=== PATIENT | male | born 1935 | race Caucasian/White ===

== ENCOUNTER → 2024-04-07 05:00 | Outpatient (REF) | payer MEDICARE, OTHER, SELFPAY ==
[2024-04-07 08:22] LABS: Hematocrit 44.9 % (40-54); Hemoglobin 14.6 g/dL (13.0-16.5); Mean Corp Hgb Conc 32.5 g/dL (32-36); Mean Corpuscular Volume 92.2 fL (80-94); Mean Platelet Vol. 10.5 fl (6.2-12.0); Platelet Count 242 K/mm3 (150-450); RBC Distribution Width CV 13.4 % (11.6-14.6); RBC Distribution Width SD 46.1 fl (35.1-43.9); Red Blood Count 4.87 M/mm3 (4.6-6.2); White Blood Count 8.9 K/mm3 (4.4-11.0)
[2024-04-07 08:24] LABS: Hemoglobin A1c 6.3 % (3.8-5.6)
[2024-04-07 08:37] LABS: Vitamin D,25 Hydroxy 33.5 ng/mL
[2024-04-07 08:42] LABS: ALB/GLOB Ratio 0.9 RATIO (0.9-2.4); AST(SGOT) 21 U/L (15-37); Alanine Aminotransfer ALT/SGPT 21 U/L (16-61); Albumin, Serum 3.1 g/dL (3.2-5.0); Alkaline Phosphatase 111 U/L (45-117); Anion Gap 6 (5-15); BUN 20 mg/dL (7-18); BUN/Creat Ratio 24.9 RATIO (10-20); Calcium,Total 8.6 mg/dL (8.5-10.1); Chloride 110 mmol/L (98-107); Cholesterol 171 mg/dL (200); EST Glomerular Filtration Rate 97 mL/min (>60); Est Glom Filt Rate - Afr Amer 117 mL/min (>60); Globulin 3.4 g/dL (2.2-4.2); Glucose 115 mg/dL (74-106); High Density Lipoprotein 41 mg/dL; Protein, Total 6.5 g/dL (6.4-8.2); Sodium Level 141 mmol/L (136-145); T4 Total, Thyroxin 7.3 ug/dL (4.5-12.1); Thyroid Stim Hormone (TSH) 0.558 uIU/mL (0.358-3.740); Triglycerides 109 mg/dL; Very Low Density Lipoprotein 22 mg/dL (5-40)
== END ==
LOC: OLS.BROOKB 05:00
PROVIDERS: Visit Provider Family Medicine
DX: E78.2 Mixed hyperlipidemia (principal); G31.84 Mild cognitive impairment of uncertain or unknown etiology; F02.B0 Dementia in other diseases classified elsewhere, moderate, without behavioral disturbance, psychotic disturbance, mood disturbance, and anxiety
CPT/HCPCS: 36415; 80053; 80061; 82306; 83036; 84436; 84443; 85027

== ENCOUNTER 2025-05-23 18:38 | Inpatient (IN) | payer MEDICARE, OTHER, SELFPAY ==
[2025-05-23 18:39] VITALS: BP 131/70; PULSE 118; RESP 20; TEMP 37.4; O2SAT 92; BMI 29.2
--- NOTE | 2025-05-23 19:17 | RAD_ITS ---
PROCEDURE: HIP, UNI W/ PELVIS 2-3 VIEWS 05/23/2025 REASON FOR EXAM: FALL TECHNIQUE: Procedure Code: [facility] Modality: DX Procedure: HIP, UNI W/ PELVIS 2-3 VIEWS COMPARISON: Reviewed FINDINGS: Osseous structures intact. Moderate degenerative changes of the bilateral hips. Vascular calcifications. No dislocations. No erosive change. RAD/HIP, UNI W/ Pelvis 2-3 Views IMPRESSION: As above. [facility]
--- NOTE | 2025-05-23 19:17 | EKG12_ITS ---
Test Reason : Blood Pressure : */* mmHG Vent. Rate : 114 BPM Atrial Rate : 114 BPM P-R Int : 174 ms QRS Dur : 134 ms QT Int : 350 ms P-R-T Axes : 63 74 43 degrees QTcB Int : 482 ms Sinus tachycardia with Premature atrial complexes Right bundle branch block Cannot rule out Inferior infarct , age undetermined Abnormal ECG Confirmed by Oscar Lujan ([id number]), editor sound GRANT BEJARANO ([id number]) on 05/25/2025 8:35:06 AM Referred By: Confirmed By: Oscar Lujan
--- OUTSIDE RECORDS SUMMARY | 2025-05-23 19:23 | XMS RPT_ITS | CCD ---
Author Organization [facility] Informat ion Partnership [employer] [facility] Care Team Providers Care Director Of Safety And Security Name Role Phone Johnson Lang Attending Unavailable Problems Problem Classification Problem Date Documented Da te Episodic/Chronic Disorders of lipid metabolism (1 source) Mixed hyperlipidemia; Translations: [Mixed hyperlipidemia] Onset: 05-05-2024 Chronic Essential hypertension (1 source) Essential (primary) hypertension; Translations: [Essential (primary) hypertension] Onset: 05-05-2024 Chronic Encounters Encounter Date Encounter Type Care Provider Facility Start: 04-07-2024 ambulatory Johnson BENAVIDES Facil ity:[facility] Payers Date Payer Category Payer Medicare [id number] 2024 Self-pay 2024 Unknown [id number] Unknown [id number] Summary Purpose Family History No Family History Records Found Advance Directives No Advanced Directives Records Found Additional Source Comments (unrecognized sect ion and content) No Status Records Found INFORMATION SOURCE (unrecogn ized section and content) DATE CREATED AUTHOR 05/07/2024 [facility] FOR RECORDS PERTAINING TO PATIENTS WHO ARE OR HAVE BEEN ENROLLED IN A CHEMICAL DEPENDENCY/SUBSTANCEABUSE PROGRAM, SOME INFORMATION MAY BE OMITTED. This clinical summary was aggregated from multiple sources. Caution should be exercised in using it in the provision of clinical care. This summary normalizes information from multiple sources, and as a consequence, information in this document may materially change the coding, format and clinical context of patient data. In addition, data may be omitted in some cases. CLINICAL DECISIONS SHOULD BE BASED ON THE PRIMARY CLINICAL RECORDS. [employer] provides no warranty or guarantee of the accuracy or completeness of information in this document.
--- NOTE | 2025-05-23 19:28 | ED.VIS.FALL ---
HPI HPI - Fall History of Present Illness Chief Complaint: Fall Narrative Narrative: Chief complaint and HPI: 79-year-old male with past medical history of dementia in a memory care unit, HTN, HLD presents from care facility for evaluation of generalized weakness and cough. Patient is alert and oriented to self only. Reported patient's baseline. Patient is a poor historian. States he has no complaints at this time. I spoke with the political science faculty member over the phone at the care facility. They state for the past 4 days the patient has had a cough. They state that he was ambulating when he developed weakness and they helped lower him to the ground. He did not hit his head. No LOC. They state originally the patient complained of right hip pain. They deny any nausea, vomiting, diarrhea. Review of systems: See HPI Medications: As listed on the chart Allergies: As listed on the chart PFSH: Per chart Vital signs: As listed on the chart. Reviewed. Physical exam: Gen: A&O x1-patient's baseline, NAD Head: Normocephalic, atraumatic Eyes: No sclera icterus, conjunctiva clear, PERRL, EOMI ENT: TMs clear BL, mildly dry mucous membranes, posterior oropharynx unremarkable, uvula midline, tonsils not enlarged, no tonsillar exudates, no facial tenderness, patient has abrasions to the face that were reported to be old and not new Neck: Trachea midline, No JVD, Nontender, full range of motion CV: Tachycardic, regular rhythm, no murmurs, no chest wall TTP Resp: Lungs coarse bilaterally, no wheezing, + cough, intermittent tachypnea GI: Abd soft, non-distended, non-tender, no r/r/g Musc: Full ROM, no deformity, no spinal TTP, no silverio step-offs Skin: Warm, dry, intact Psych: Cooperative [facility] Medical History (Updated 05/23/25 @ 19:44 by Kelly King) Hypertension Hyperlipidemia Depression Anxiety Dementia Home Medications ?Medication ?Instructions ?Recorded ?Last Taken ?Type acetaminophen 500 mg tablet 500 mg PO Q6H PRN pain 05/23/25 Unknown History atorvastatin 10 mg tablet 10 mg PO DAILY 05/23/25 Unknown History citalopram 20 mg tablet 20 mg PO DAILY 05/23/25 Unknown History hydrocortisone 2.5 % lotion 1 applic topical DAILY PRN skin 05/23/25 Unknown History irritation ipratropium bromide 42 mcg (0.06 1 spray intranasal BID 05/23/25 Unknown History %) nasal spray lorazepam 0.5 mg tablet 0.5 mg PO Q12H PRN anxiety 05/23/25 Unknown History losartan 25 mg tablet 25 mg PO DAILY 05/23/25 Unknown History memantine 10 mg tablet 10 mg PO BID 05/23/25 Unknown History mirtazapine 30 mg tablet 30 mg PO QHS 05/23/25 Unknown History multivit with minerals-iron 18 1 tab PO DAILY 05/23/25 Unknown History mg-folic ac 400 mcg-vit K 25 mcg tablet (Adults Multivitamin) quetiapine 25 mg tablet 25 mg PO BID 05/23/25 Unknown History Allergy/AdvReac Type Severity Reaction Status Date / Time Unable to Assess Allergy Verified 05/23/25 18:40 Social History Smoking Status: Unknown if ever smoked EXAM Physical Exam Const Vital Signs: 05/23/25 18:39 05/23/25 19:42 05/23/25 20:51 Temperature 99.4 F H 98.8 F Temperature Source Oral Oral Pulse Rate 118 H 115 H Respiratory Rate 20 H 18 Respiratory Effort Normal Non-Labored Respiratory Depth Normal Respiratory Pattern Normal Blood Pressure 131/70 H 129/66 H Blood Pressure Mean 90 87 Pulse Ox 92 100 Oxygen Delivery Method Room Air Room Air Room Air 05/23/25 22:01 Temperature Temperature Source Pulse Rate 103 H Respiratory Rate 22 H Respiratory Effort Respiratory Depth Respiratory Pattern Blood Pressure 122/60 H Blood Pressure Mean 80 Pulse Ox 95 Oxygen Delivery Method Room Air MDM MDM MDM Narrative Medical decision making narrative: 79-year-old male with past medical history of dementia in a memory care unit, HTN, HLD presents from care facility for evaluation of generalized weakness and cough. Patient is alert and oriented to self only. Reported patient's baseline. Patient is a poor historian. States he has no complaints at this time. I spoke with the political science faculty member over the phone at the care facility. They state for the past 4 days the patient has had a cough. They state that he was ambulating when he developed weakness and they helped lower him to the ground. He did not hit his head. No LOC. They state originally the patient complained of right hip pain. Differential diagnosis includes but is not limited to viral illness, pneumonia, electrolyte abnormality, dehydration, arrhythmia, ACS, UTI, suspect less likely hip fracture, hip contusion. NS bolus and Tylenol ordered. Laboratory workup ordered including imaging. CBC without leukocytosis or anemia. Platelets unremarkable. CMP unremarkable. Lactic acid unremarkable. Magnesium mildly elevated at 2.4. Patient receiving fluids. Troponin unremarkable x 2. COVID, flu, RSV negative. UA positive for UTI. Urine culture sent. Rocephin ordered. X-ray of the hip and pelvis was reviewed interpreted by me, ED physician. No fracture or dislocation visualized. Radiology in agreement.On reevaluation, patient still has generalized weakness. He is still tachycardic and intermittently tachypneic. I suspect patient has 2 diagnoses, viral illness with UTI. I do think he would benefit from admission for IV antibiotics. Patient was discussed with the hospitalist who accepted admission. EKG: Interpreted by me/EM physician: EKG shows sinus tachycardia with PACs. Right bundle branch block. Heart rate 114. Nonspecific ST changes. I do not have a previous EKG to co Diagnostic: Interpreted by me/EM physician: Chest x-ray without consolidation, pneumothorax, effusion, cardiomegaly. Radiology in agreement. Per radiology bibasilar subsegmental atelectasis. Impression: 1. Viral syndrome 2. UTI 3. Generalized weakness Lab Data Labs: Laboratory Results - last 24 hr 05/23/25 05/23/25 05/23/25 19:35 21:30 21:55 WBC 10.1 RBC 4.84 Hgb 14.4 Hct 44.4 MCV 91.7 MCH 29.8 MCHC 32.4 RDW Std Deviation 46.0 H RDW Coeff of Jake 13.5 Plt Count 222 MPV 10.4 Immature Gran % (Auto) 0.400 Neut % (Auto) 70.4 H Lymph % (Auto) 16.2 L [place] % (Auto) 10.5 H Eos % (Auto) 1.9 Baso % (Auto) 0.6 Absolute Neuts (auto) 7.1 Absolute Lymphs (auto) 1.63 Nucleated RBC % 0 Sodium 136 Potassium 4.3 Chloride 101 Carbon Dioxide 23.7 Anion Gap 11 BUN 19 Creatinine 1.18 Estim Creat Clear Calc 45.57 L Est GFR (MDRD) Non-Af 59 L BUN/Creatinine Ratio 16.4 Glucose 142 H Lactic Acid 1.7 Calcium 8.7 Magnesium 2.4 H Total Bilirubin 0.38 AST 27 ALT 14 Alkaline Phosphatase 108 Troponin T High Sens 19 Troponin T Hi Sens 2 Hr 17 Total Protein 7.2 Albumin 3.8 Globulin 3.3 Albumin/Globulin Ratio 1.2 Urine Color Yellow Urine Clarity Sl. Cloudy Urine pH 5.0 Ur Specific [place] 1.020 Urine Protein 30 H Urine Glucose (UA) Normal Urine Ketones 5 H Urine Occult Blood 150 H Urine Nitrite Negative Urine Bilirubin Negative Urine Urobilinogen 1 H Ur Leukocyte Esterase 25 H Urine RBC 50-100 SEEN Urine WBC 5-10 SEEN Ur Squamous Epith Cells 0-5 SEEN Urine Bacteria 3+ Hyaline Casts 0-5 SEEN Urine Mucus 3+ Radiography Diagnostic Testing: Clinical Impression(s) from Imaging Studies Hip/Pelvis X-Ray 05/23/25 19:17 IMPRESSION: As above. Reading Location: [facility] Chest X-Ray 05/23/25 19:50 IMPRESSION: No focal consolidation. Bibasilar subsegmental atelectasis. Reading Location: [facility] Discharge Plan Triage Chief Complaint: Fall ED Provider: Barney Arias Dx/Rx/DC Orders Prescriptions: No Action acetaminophen 500 mg tablet 500 mg PO Q6H PRN (Reason: pain) atorvastatin 10 mg tablet 10 mg PO DAILY citalopram 20 mg tablet 20 mg PO DAILY hydrocortisone 2.5 % lotion 1 applic topical DAILY PRN (Reason: skin irritation) ipratropium bromide 42 mcg (0.06 %) spray,non-aerosol 1 spray INTRANASAL BID Patient Comments: [NO ORIGINAL SIG] lorazepam 0.5 mg tablet 0.5 mg PO Q12H PRN (Reason: anxiety) quetiapine 25 mg tablet 25 mg PO BID mirtazapine 30 mg tablet 30 mg PO QHS losartan 25 mg tablet 25 mg PO DAILY memantine 10 mg tablet 10 mg PO BID Adults Multivitamin 18 mg iron-400 mcg-25 mcg tablet 1 tab PO DAILY Primary Care Provider: Johnson Solano Referrals: Johnson Solano MD [Primary Care Provider, Medical] Print Language: Sami
[2025-05-23] MEDS: 0.9% Normal Saline (1000mL) 1,000 ML 1000 ML IV (19:40)
[2025-05-23 19:44] LABS: Hematocrit 44.4 % (40-54); Hemoglobin 14.4 g/dL (13.0-16.5); Immature Granulocytes Count 0.040 X10^3/uL (0.0-0.0); Mean Corp Hgb Conc 32.4 g/dL (32-36); Mean Corpuscular Volume 91.7 fL (80-94); Mean Platelet Vol. 10.4 fl (6.2-12.0); NRBC Flagged by Analyzer 0 % (0-5); Platelet Count 222 K/mm3 (150-450); RBC Distribution Width CV 13.5 % (11.6-14.6); RBC Distribution Width SD 46.0 fl (35.1-43.9); Red Blood Count 4.84 M/mm3 (4.6-6.2); White Blood Count 10.1 K/mm3 (4.4-11.0)
--- NOTE | 2025-05-23 19:50 | RAD_ITS ---
PROCEDURE: CHEST PA AND LATERAL 05/23/2025 REASON FOR EXAM: COUGH TECHNIQUE: Procedure Code: RADCXR Modality: DX Procedure: CHEST PA AND LATERAL FINDINGS: No focal consolidation. Bibasilar subsegmental atelectasis. No pleural effusion or pneumothorax. Cardiac silhouette is within normal limits. Calcified aortic arch. No acute fractures. RAD/Chest PA and Lateral IMPRESSION: No focal consolidation. Bibasilar subsegmental atelectasis. Reading Location: [id number]
[2025-05-23 20:20] LABS: AST(SGOT) 27 U/L (<=37); Alanine Aminotransfer ALT/SGPT 14 U/L (<=46); Albumin, Serum 3.8 g/dL (3.4-4.8); Alkaline Phosphatase 108 U/L (40-129); Anion Gap 11 (5-15); BUN 19 mg/dL (4-19); BUN/Creat Ratio 16.4 RATIO (10-20); Calcium,Total 8.7 mg/dL (7.6-11.0); Carbon Dioxide 23.7 mmol/L (21.0-32.0); Chloride 101 mmol/L (98-108); Estimated Creatinine Clearance 45.57 ml/min (50-250); Globulin 3.3 g/dL (2.2-4.2); Glucose 142 mg/dL (70-99); Magnesium 2.4 mg/dL (1.5-2.2); Potassium 4.3 mmol/L (3.3-5.1); Troponin T High Sensitivity 19 ng/L (<=22)
--- NOTE | 2025-05-23 20:26 | CM.ED ---
Social Work Date of referral: 05/23/25 Reason for referral: Advanced Care Directives (ACD's) not on file. Referred by: Social Work Identification Patient provided consent to social work visit. Safety And Health Consultant requested copy of ACD's and patient appeared to be confused; not full oriented. Elida Prescott, [employer] APPLICATION CONSULTANT, POINT OF CARE TECHNICIAN
[2025-05-23 20:51] VITALS: BP 129/66; PULSE 115; RESP 18; TEMP 37.1; O2SAT 100
[2025-05-23 22:01] VITALS: BP 122/60; PULSE 103; RESP 22; O2SAT 95
[2025-05-23 22:10] LABS: Color, Urine Yellow (Yellow); Glucose, Dipstick Normal (Normal); Ketone-Dipstick 5 mg/dl (Negative); Leukocyte Esterase-Dipstick 25 /ul (Negative); Nitrite-Dipstick Negative (Negative); Occult Blood-Urine 150 /ul (Negative); Protein-Dipstick 30 mg/dl (Negative); Specific Gravity, Urine 1.020 (1.002-1.030); Urine Bilirubin Dipstick Negative (Negative)
[2025-05-23 22:16] LABS: Troponin T High Sens 2 HR 17 ng/L (<=22)
[2025-05-23 22:34] LABS: Mucous, Urine 3+ /hpf (<or=2+); Red Blood Cells-Urine 50-100 SEEN /hpf (0-5); Squamous Epithelial Cells - UA 0-5 SEEN /hpf (0-5)
--- OUTSIDE RECORDS SUMMARY | 2025-05-23 23:37 | XMS RPT_ITS | CCD ---
Author Organization [facility] Informat ion Partnership [employer] [facility] Care Team Providers Care Valve Grinder Name Role Phone Johnson Lang Attending Unavailable Problems Problem Classification Problem Date Documented Da te Episodic/Chronic Disorders of lipid metabolism (1 source) Mixed hyperlipidemia; Translations: [Mixed hyperlipidemia] Onset: 05-05-2024 Chronic Essential hypertension (1 source) Essential (primary) hypertension; Translations: [Essential (primary) hypertension] Onset: 05-05-2024 Chronic Encounters Encounter Date Encounter Type Care Provider Facility Start: 04-07-2024 ambulatory Johnson BENAVIDES Facil ity:[facility] Payers Date Payer Category Payer Medicare [id number] 2024 Self-pay 2024 Unknown [id number] Unknown [id number] Summary Purpose Family History No Family History Records Found Advance Directives No Advanced Directives Records Found Additional Source Comments (unrecognized sect ion and content) No Status Records Found INFORMATION SOURCE (unrecogn ized section and content) DATE CREATED AUTHOR 05/07/2024 [facility] FOR RECORDS PERTAINING TO PATIENTS WHO ARE [...] BE BASED ON THE PRIMARY CLINICAL RECORDS. [employer] provides no warranty or guarantee of the accuracy or completeness of information in this document.
--- NOTE | 2025-05-23 23:39 | PCM.HP.STD ---
HPI - General General Date of Admission: 05/23/25 Date of Service: 05/23/25 Chief Complaint: Left hip pain and cough HPI Narrative POPPY KELLER, is a 89 M was brought to ED by EMS for cough and left hip pain. Patient has advanced dementia along with profound deafness/hearing loss therefore history directly from the patient not possible therefore collected from chart from EMS nursing staff. Patient has been coughing up for several days as per EMS but patient could not tell himself. Seems mainly dry. Patient is also wheezing but unclear about the history of COPD/emphysema. Patient had witnessed fall at nursing station today. No LOC or head injury. Usually patient is oriented to self only with intermittent confusion and is on multiple antipsychotic medications. He himself denied any left hip pain. EMS vitals shows heart rate 118/min. RR 14. In ED also patient was tachycardic 115/min. Mild tachypneic RR 22/min. No hypoxia. Patient was further admitted. [facility] Medical History Hypertension Hyperlipidemia Depression Anxiety Dementia Home Medications ?Medication ?Instructions ?Recorded ?Last Taken ?Type acetaminophen 500 mg tablet 500 mg PO Q6H PRN pain 05/23/25 Unknown History atorvastatin 10 mg tablet 10 mg PO DAILY 05/23/25 05/23/25 History citalopram 20 mg tablet 20 mg PO DAILY 05/23/25 05/23/25 History hydrocortisone 2.5 % lotion 1 applic topical DAILY PRN skin 05/23/25 Unknown History irritation ipratropium bromide 42 mcg (0.06 1 spray intranasal BID 05/23/25 05/23/25 History %) nasal spray lorazepam 0.5 mg tablet 0.5 mg PO Q12H PRN anxiety 05/23/25 Unknown History losartan 25 mg tablet 25 mg PO DAILY 05/23/25 05/23/25 History memantine 10 mg tablet 10 mg PO BID 05/23/25 05/23/25 History mirtazapine 30 mg tablet 30 mg PO QHS 05/23/25 05/23/25 History multivit with minerals-iron 18 1 tab PO DAILY 05/23/25 05/23/25 History mg-folic ac 400 mcg-vit K 25 mcg tablet (Adults Multivitamin) quetiapine 25 mg tablet 25 mg PO BID 05/23/25 05/23/25 History Allergy/AdvReac Type Severity Reaction Status Date / Time Unable to Assess Allergy Verified 05/23/25 18:40 Social History Smoking Status: Unknown if ever smoked ROS ROS Narrative 14 system ROS unobtainable because of dementia. Patient also has profound hearing loss Review of Systems ROS Unobtainable: due to mental condition and due to mental status Vital Signs Vital Signs Vital Signs: 05/23/25 18:39 05/23/25 19:42 05/23/25 20:51 Temperature 99.4 F H 98.8 F Temperature Source Oral Oral Pulse Rate 118 H 115 H Respiratory Rate 20 H 18 Respiratory Effort Normal Non-Labored Respiratory Depth Normal Respiratory Pattern Normal Blood Pressure 131/70 H 129/66 H Blood Pressure Mean 90 87 Pulse Ox 92 100 Oxygen Delivery Method Room Air Room Air Room Air 05/23/25 22:01 Temperature Temperature Source Pulse Rate 103 H Respiratory Rate 22 H Respiratory Effort Respiratory Depth Respiratory Pattern Blood Pressure 122/60 H Blood Pressure Mean 80 Pulse Ox 95 Oxygen Delivery Method Room Air Weight Weight: 192 lb 3.889 oz Body Mass Index (BMI) 29.2 Physical Exam Narrative General: Sleeping but woke up. Intermittent confusion. Oriented to self only, BMI 27.8 kg/m? HEENT: Atraumatic, PERRLA, EOMI, Normocephalic. Oral: Oral mucosa dry. No Gingival or Mucosal Lesions/ Ulcerations Neck: Supple, No JVD, Negative Carotid Bruits Chest wall/Lungs: Air entry diminished in bilateral lungs. Bilateral diffuse wheezing. Mild tachypnea Cardiovascular: Sinus tachycardia, no M/G/R Abdomen: Bowel Sounds Present, Soft, Non Tender, Non-Distended : No dysuria. No renal angle tenderness. No suprapubic tenderness. Extremities: No edema, Capillary Refill Less than 3 Seconds Skin: No rashes, No breakdown Musculoskeletal: Mild tenderness over left hip region. ROM restricted over left hip. Neurological: detailed neuro unobtainable as patient does not follow command. DTR 2+. Psych/Mental Status: Advanced dementia Results Lab / Micro Data 05/23/25 19:35 05/23/25 19:35 Labs: Laboratory Results - last 24 hr 05/23/25 19:35: WBC 10.1, RBC 4.84, Hgb 14.4, Hct 44.4, MCV 91.7, MCH 29.8, MCHC 32.4, RDW Std Deviation 46.0 H, RDW Coeff of Jake 13.5, Plt Count 222, MPV 10.4, Immature Gran % (Auto) 0.400, Neut % (Auto) 70.4 H, Lymph % (Auto) 16.2 L, [place] % (Auto) 10.5 H, Eos % (Auto) 1.9, Baso % (Auto) 0.6, Absolute Neuts (auto) 7.1, Absolute Lymphs (auto) 1.63, Nucleated RBC % 0, Sodium 136, Potassium 4.3, Chloride 101, Carbon Dioxide 23.7, Anion Gap 11, BUN 19, Creatinine 1.18, Estim Creat Clear Calc 45.57 L, Est GFR (MDRD) Non-Af 59 L, BUN/Creatinine Ratio 16.4, Glucose 142 H, Lactic Acid 1.7, Calcium 8.7, Magnesium 2.4 H, Total Bilirubin 0.38, AST 27, ALT 14, Alkaline Phosphatase 108, Troponin T High Sens 19, Total Protein 7.2, Albumin 3.8, Globulin 3.3, Albumin/Globulin Ratio 1.2 05/23/25 21:30: Troponin T Hi Sens 2 Hr 17 05/23/25 21:55: Urine Color Yellow, Urine Clarity Sl. Cloudy, Urine pH 5.0, Ur Specific [place] 1.020, Urine Protein 30 H, Urine Glucose (UA) Normal, Urine Ketones 5 H, Urine Occult Blood 150 H, Urine Nitrite Negative, Urine Bilirubin Negative, Urine Urobilinogen 1 H, Ur Leukocyte Esterase 25 H, Urine RBC 50-100 SEEN, Urine WBC 5-10 SEEN, Ur Squamous Epith Cells 0-5 SEEN, Urine Bacteria 3+, Hyaline Casts 0-5 SEEN, Urine Mucus 3+ Micro: Microbiology 05/23/25 19:35 Mucosa - Nose SARS-CoV-2, Influenza & RSV (PCR) - Final Imaging Radiology Impression Hip/Pelvis X-Ray 05/23/25 19:17 IMPRESSION: As above. Reading Location: [facility] Chest X-Ray 05/23/25 19:50 IMPRESSION: No focal consolidation. Bibasilar subsegmental atelectasis. Reading Location: [facility] Assessment & Plan Assessment/Plan (1) Left hip pain: (2) Viral syndrome: PLAN: Plan This 89-year-old gentleman is being admitted for cough for several days along with witnessed fall today resulting in left hip pain. 1. Possible viral syndrome or possible undiagnosed asthma or asthma like symptoms or upper airway cough syndrome: Detailed history regarding chronic respiratory condition unobtainable from the patient. Patient does not have mention of COPD or any respiratory condition in past medical history. Chest x-ray reviewed and shows bibasilar atelectasis but negative for consolidation. Triple PCR for SARS-CoV-2, flu and RSV are negative. Respiratory panel ordered. Antibiotic not indicated at this time. Symptomatic management with scheduled bronchodilator, IV Solu-Medrol, Mucinex, incentive spirometry and Pep. 2. Left hip pain after fall: Patient is weakness fall in long term. X-ray initially reviewed and shows moderate degenerative changes of bilateral hips but no fracture or dislocation or erosive changes. PT and OT ordered 3. Hypertension: BP in normal limit. On low-dose losartan continued 4. Dyslipidemia on atorvastatin continue 5. Advanced dementia with possible depression: Patient on citalopram, mirtazapine, quetiapine and lorazepam as needed for anxiety. Patient on memantine continued. 6. CKD stage IIIa: Estimated creatinine clearance 45.57. BUN/creatinine 19/1.18. DVT prophylaxis: High risk: Enoxaparin 40 mg subcu daily ordered. Living will/advanced directive/end of life care: Patient does have living will or advanced directive and DNR CC documentation from the long term. Patient is advanced dementia therefore could not discuss advanced directive to patient but document from long term states DNR CC. Microbiology Past 72 Hours 05/23/25 19:35 Mucosa - Nose SARS-CoV-2, Influenza & RSV (PCR) - Final Laboratory Results 05/23/25 19:35: WBC 10.1, RBC 4.84, Hgb 14.4, Hct 44.4, MCV 91.7, MCH 29.8, MCHC 32.4, RDW Std Deviation 46.0 H, RDW Coeff of Jake 13.5, Plt Count 222, MPV 10.4, Immature Gran % (Auto) 0.400, Neut % (Auto) 70.4 H, Lymph % (Auto) 16.2 L, [place] % (Auto) 10.5 H, Eos % (Auto) 1.9, Baso % (Auto) 0.6, Absolute Neuts (auto) 7.1, Absolute Lymphs (auto) 1.63, Nucleated RBC % 0, Sodium 136, Potassium 4.3, Chloride 101, Carbon Dioxide 23.7, Anion Gap 11, BUN 19, Creatinine 1.18, Estim Creat Clear Calc 45.57 L, Est GFR (MDRD) Non-Af 59 L, BUN/Creatinine Ratio 16.4, Glucose 142 H, Lactic Acid 1.7, Calcium 8.7, Magnesium 2.4 H, Total Bilirubin 0.38, AST 27, ALT 14, Alkaline Phosphatase 108, Troponin T High Sens 19, Total Protein 7.2, Albumin 3.8, Globulin 3.3, Albumin/Globulin Ratio 1.2 05/23/25 21:30: Troponin T Hi Sens 2 Hr 17 05/23/25 21:55: Urine Color Yellow, Urine Clarity Sl. Cloudy, Urine pH 5.0, Ur Specific [place] 1.020, Urine Protein 30 H, Urine Glucose (UA) Normal, Urine Ketones 5 H, Urine Occult Blood 150 H, Urine Nitrite Negative, Urine Bilirubin Negative, Urine Urobilinogen 1 H, Ur Leukocyte Esterase 25 H, Urine RBC 50-100 SEEN, Urine WBC 5-10 SEEN, Ur Squamous Epith Cells 0-5 SEEN, Urine Bacteria 3+, Hyaline Casts 0-5 SEEN, Urine Mucus 3+ Clinical Impression(s) from Imaging Studies Hip/Pelvis X-Ray 05/23/25 19:17 IMPRESSION: As above. Reading Location: [facility] Chest X-Ray 05/23/25 19:50 IMPRESSION: No focal consolidation. Bibasilar subsegmental atelectasis. Reading Location: [facility] Charges/Coding Visit Charges Inpatient E&M: 18855 Init Hosp L3
[2025-05-23 23:42] VITALS: BP 122/60; PULSE 103; RESP 22; TEMP 36.9; O2SAT 95
[2025-05-23 23:45] VITALS: BMI 27.7
[2025-05-24] VITALS (9 sets, daily range): BP systolic 101–142; BP diastolic 60–84; PULSE 84–95; RESP 18–24; TEMP 36.4–37; O2SAT 86–96; BMI 27.7
[2025-05-24] MEDS: 0.9% Saline Lock 10 ML Syringe IV (01:43)
[2025-05-24 06:58] LABS: Hematocrit 44.6 % (40-54); Hemoglobin 14.5 g/dL (13.0-16.5); Immature Granulocytes Count 0.020 X10^3/uL (0.0-0.0); Mean Corp Hgb Conc 32.5 g/dL (32-36); Mean Corpuscular Volume 92.5 fL (80-94); Mean Platelet Vol. 10.5 fl (6.2-12.0); NRBC Flagged by Analyzer 0 % (0-5); Platelet Count 193 K/mm3 (150-450); RBC Distribution Width CV 13.4 % (11.6-14.6); RBC Distribution Width SD 45.7 fl (35.1-43.9); Red Blood Count 4.82 M/mm3 (4.6-6.2); White Blood Count 8.0 K/mm3 (4.4-11.0)
[2025-05-24 07:23] LABS: Anion Gap 11 (5-15); BUN 18 mg/dL (4-19); BUN/Creat Ratio 18.6 RATIO (10-20); Calcium,Total 8.3 mg/dL (7.6-11.0); Carbon Dioxide 21.7 mmol/L (21.0-32.0); Chloride 104 mmol/L (98-108); Estimated Creatinine Clearance 55.38 ml/min (50-250); Glucose 152 mg/dL (70-99); Potassium 4.5 mmol/L (3.3-5.1)
--- NOTE | 2025-05-24 08:07 | PN.HOSP_ITS ---
Reason for Visit Chief Complaint: Left hip pain and cough Subjective Subjective still coughing. Objective Data Objective Data Vital Signs: Vital Signs Temp Pulse Resp BP Pulse Ox O2 Del Method O2 Flow Rate 36.6 C 92 18 142/64 H 96 Nasal Cannula 2 05/24/25 06:52 05/24/25 06:52 05/24/25 06:52 05/24/25 06:52 05/24/25 06:52 05/24/25 07:18 05/24/25 07:18 Oxygen Flow Rate (L/min) 2 Oxygen Delivery Method Nasal Cannula Weight: 83.1 kg Body Mass Index (BMI) 27.7 Intake & Output: Intake and Output for Last 24 Hours 05/22/25 05/23/25 05/24/25 23:59 23:59 23:59 Intake Total 1050 / 1050 0 / 0 Output Total 0 / 0 Balance 1050 / 1050 0 / 0 Lab / Micro Data 05/24/25 06:20 05/24/25 06:20 Labs: Laboratory Results - last 24 hr 05/23/25 19:35: WBC 10.1, RBC 4.84, Hgb 14.4, Hct 44.4, MCV 91.7, MCH 29.8, MCHC 32.4, RDW Std Deviation 46.0 H, RDW Coeff of Jake 13.5, Plt Count 222, MPV 10.4, Immature Gran % (Auto) 0.400, Neut % (Auto) 70.4 H, Lymph % (Auto) 16.2 L, Hendricks % (Auto) 10.5 H, Eos % (Auto) 1.9, Baso % (Auto) 0.6, Absolute Neuts (auto) 7.1, Absolute Lymphs (auto) 1.63, Nucleated RBC % 0, Sodium 136, Potassium 4.3, Chloride 101, Carbon Dioxide 23.7, Anion Gap 11, BUN 19, Creatinine 1.18, Estim Creat Clear Calc 45.57 L, Est GFR (MDRD) Non-Af 59 L, BUN/Creatinine Ratio 16.4, Glucose 142 H, Lactic Acid 1.7, Calcium 8.7, Magnesium 2.4 H, Total Bilirubin 0.38, AST 27, ALT 14, Alkaline Phosphatase 108, Troponin T High Sens 19, Total Protein 7.2, Albumin 3.8, Globulin 3.3, Albumin/Globulin Ratio 1.2 12/07/25 21:30: Troponin T Hi Sens 2 Hr 17 05/23/25 21:55: Urine Color Yellow, Urine Clarity Sl. Cloudy, Urine pH 5.0, Ur Specific Hubbell 1.020, Urine Protein 30 H, Urine Glucose (UA) Normal, Urine Ketones 5 H, Urine Occult Blood 150 H, Urine Nitrite Negative, Urine Bilirubin Negative, Urine Urobilinogen 1 H, Ur Leukocyte Esterase 25 H, Urine RBC 50-100 SEEN, Urine WBC 5-10 SEEN, Ur Squamous Epith Cells 0-5 SEEN, Urine Bacteria 3+, Hyaline Casts 0-5 SEEN, Urine Mucus 3+ 05/24/25 06:20: WBC 8.0, RBC 4.82, Hgb 14.5, Hct 44.6, MCV 92.5, MCH 30.1, MCHC 32.5, RDW Std Deviation 45.7 H, RDW Coeff of Jake 13.4, Plt Count 193, MPV 10.5, Immature Gran % (Auto) 0.300, Neut % (Auto) 85.5 H, Lymph % (Auto) 10.9 L, Hendricks % (Auto) 2.6, Eos % (Auto) 0.3, Baso % (Auto) 0.4, Absolute Neuts (auto) 6.8, Absolute Lymphs (auto) 0.87, Nucleated RBC % 0, Sodium 136, Potassium 4.5, Chloride 104, Carbon Dioxide 21.7, Anion Gap 11, BUN 18, Creatinine 0.95, Estim Creat Clear Calc 55.38, Est GFR (MDRD) Non-Af 76, BUN/Creatinine Ratio 18.6, G lucose 152 H, Calcium 8.3 Micro: Microbiology 05/24/25 03:55 Mucosa - Nasopharyngeal Respiratory Panel (PCR) - Final Rhinovirus 05/23/25 21:55 Urine, Clean Catch Streptococcus pneumoniae Antigen (M - Final 05/23/25 21:55 Urine, Clean Catch Legionella Antigen - Final 05/23/25 19:35 Mucosa - Nose SARS-CoV-2, Influenza & RSV (PCR) - Final Radiography Diagnostic Testing: Radiology Impression Hip/Pelvis X-Ray 05/23/25 19:17 IMPRESSION: As above. Reading Location: [facility] Chest X-Ray 05/23/25 19:50 IMPRESSION: No focal consolidation. Bibasilar subsegmental atelectasis. Reading Location: [facility] Physical Exam Const alert and no apparent distress Resp Resp Narrative: coarse wheezes bilateraly Cardio regular rate, regular rhythm, S1 normal heart sound and S2 normal heart sound GI normal to inspection, nondistended, normoactive bowel sounds, soft to palpation, non-tender and non-distended Extremity normal to inspection and full ROM Neuro Sensorium / Orientation: awake and alert Assessment & Plan Assessment/Plan (1) Left hip pain: (2) Viral syndrome: PLAN: Plan Acute bronchitis * Symptomatic management with scheduled bronchodilator, IV Solu-Medrol, Mucinex, incentive spirometry and Pep. Left hip pain after fall: * Patient is weakness fall in longterm. X-ray initially reviewed and shows moderate degenerative changes of bilateral hips but no fracture or dislocation or erosive changes. PT and OT ordered Chronic conditions: * Hypertension: BP in normal limit. 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 Patient on memantine continued. * CKD stage IIIa: Estimated creatinine clearance 45.57. BUN/creatinine 19/1.18. DVT prophylaxis: High risk: Enoxaparin 40 mg subcu daily ordered. Disposition: plan to DC to [facility] in 1-2 days. Charges/Coding Visit Charges Inpatient E&M: 50524 Subs Hosp L2
[2025-05-24] MEDS: guaiFENesin/D-Methorphan TAB.SR.12H 2 TABLET PO ×2 (09:34→20:57)
[2025-05-24] MEDS: Memantine Hydrochloride 10 MG Tablet PO ×2 (09:35→20:59)
--- NOTE | 2025-05-24 11:01 | CASEMGMT ---
SW Assessment: SW called pt dtr and HCPOA to complete assessment, as pt is O x 1 with history of dementia. Pt is from [facility]. PCP: Johnson Solano Preferred Pharmacy: [facility] Insurance: [facility] Prescription Benefit: yes LNOK: Erendira, dtr and HCPOA. Documents not on chart; requested for scan Living Arrangements: Pt lives in memory care unit of [facility]. Pt dtr reports the plans are for pt to return. At [facility], pt has supervision for ADLs and does not use a device for ambulation. Transportation: Pt utilizes facility transportation or dtr is able to transport when she is in town (she lives one hour away). DME: shower chair HHC/SNF: none Plan: return to [facility]. SW remains available to follow for discharge planning needs. DANIEL Fang
--- NOTE | 2025-05-24 11:36 | CASEMGMT ---
Discharge Planning Updates faxed to [facility], attn; Dee Dee Nunez. Call placed to request copy of advanced directives. [facility] states that they have none on file. SW updated. Kimberley Collins DC Planning Asst.
--- NOTE | 2025-05-24 14:13 | CASEMGMT ---
KAREN Met with patient to complete JONES form. JONES form and its content were verbally explained and patient's questions were answered to the best of my ability.? Patient voiced understanding and signed JONES form.? Patient provided a copy of signed JONES form and original placed in patient's chart.? Patient had no further questions. Kimberley Collins, Discharge Planning Asst.
[2025-05-25 05:15] VITALS: BMI 27.7
[2025-05-25 06:10] VITALS: BP 118/62; PULSE 82; RESP 16; TEMP 36.6; O2SAT 92
[2025-05-25] MEDS: Memantine Hydrochloride 10 MG Tablet PO (07:56)
[2025-05-25] MEDS: guaiFENesin/D-Methorphan TAB.SR.12H 2 TABLET PO (07:56)
--- NOTE | 2025-05-25 08:21 | PN.HOSP_ITS ---
Reason for Visit Chief Complaint: Left hip pain and cough Subjective Subjective Feeling well. Up and walking through the hallway w/o difficulty. Objective Data Objective Data Vital Signs: Vital Signs Temp Pulse Resp BP Pulse Ox O2 Del Method O2 Flow Rate 36.6 C 82 16 118/62 92 Room Air 2 05/25/25 06:10 05/25/25 06:10 05/25/25 06:10 05/25/25 06:10 05/25/25 06:10 05/25/25 06:11 05/24/25 07:18 Oxygen Flow Rate (L/min) 2 Oxygen Delivery Method Room Air Weight: 83 kg Body Mass Index (BMI) 27.7 Intake & Output: Intake and Output for Last 24 Hours 05/23/25 05/24/25 05/25/25 23:59 23:59 23:59 Intake Total 1050 / 1050 0 / 150 510 / 510 Output Total 0 / 0 Balance 1050 / 1050 0 / 150 510 / 510 Lab / Micro Data 05/24/25 06:20 05/24/25 06:20 Micro: Microbiology 05/24/25 03:55 Mucosa - Nasopharyngeal Respiratory Panel (PCR) - Final Rhinovirus 05/23/25 21:55 Urine, Clean Catch Streptococcus pneumoniae Antigen (M - Final 05/23/25 21:55 Urine, Clean Catch Legionella Antigen - Final 05/23/25 19:35 Mucosa - Nose SARS-CoV-2, Influenza & RSV (PCR) - Final Physical Exam Const alert and no apparent distress HEENT head/scalp atraumatic and moist oral mucous membranes Resp normal respiratory effort, no retractions, no use of accessory muscles and clear to auscultation bilaterally Cardio regular rate, regular rhythm and S1 normal heart sound Assessment & Plan Assessment/Plan (1) Left hip pain: (2) Viral syndrome: PLAN: Plan Acute bronchitis * Symptomatic management with scheduled bronchodilator, IV Solu-Medrol, Mucinex, incentive spirometry and Pep. * check home oxygen * DC w prednisone Left hip pain after fall: * Patient is weakness fall in [facility]. X-ray initially reviewed and shows moderate degenerative changes of bilateral hips but no fracture or dislocation or erosive changes. PT and OT ordered Chronic conditions: * Hypertension: BP in normal limit. 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 Patient on memantine continued. * CKD stage IIIa: Estimated creatinine clearance 45.57. BUN/creatinine /1.18. Disposition: plan to DC to [facility]
[2025-05-25 09:32] VITALS: O2SAT 91
[2025-05-25 10:13] VITALS: O2SAT 90; O2SAT 94
--- NOTE | 2025-05-25 11:31 | CASEMGMT ---
Social Work- CARLEY called pt dtr Erendira to provide updates regarding discharge. Erendira requests CARLEY set transport. CARLEY called [facility] to inquire into transport. Fito reports that he is able to arrange transport for 13:00. Erendira, bedside nurse, and hospitalist notified. CARLEY remains available to follow. Plan: [facility]; return DANIEL Fang
--- NOTE | 2025-05-25 11:41 | DS.PCM_ITS ---
Providers Date of Admission: 05/24/25 Primary Care Physician: Dr. Johnson Solano MD Reason For Visit: URI, GENERAL WEAKNESS, VIRAL Diagnosis Discharge Diagnosis (1) Left hip pain: Status: Acute Code(s): M25.552 - Pain in left hip (2) Viral syndrome: Status: Acute Code(s): B34.9 - Viral infection, unspecified Plan Acute bronchitis * Symptomatic management with scheduled bronchodilator, IV Solu-Medrol, Mucinex, incentive spirometry and Pep. * check home oxygen * DC w prednisone Left hip pain after fall: * Patient is weakness fall in senior care. X-ray initially reviewed and shows moderate degenerative changes of bilateral hips but no fracture or dislocation or erosive changes. PT and OT ordered Chronic conditions: * Hypertension: BP in normal limit. 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 Patient on memantine continued. * CKD stage IIIa: Estimated creatinine clearance 45.57. BUN/creatinine 19/1.18. Disposition: plan to DC to [facility] Medications at Discharge Home Medications acetaminophen 500 mg tablet 500 mg PO Q6H PRN pain 05/23/25 atorvastatin 10 mg tablet 10 mg PO DAILY 05/23/25 citalopram 20 mg tablet 20 mg PO DAILY 05/23/25 hydrocortisone 2.5 % lotion 1 applic topical DAILY PRN skin irritation 05/23/25 ipratropium bromide 42 mcg (0.06 %) nasal spray 1 spray intranasal BID 05/23/25 lorazepam 0.5 mg tablet 0.5 mg PO Q12H PRN anxiety 05/23/25 losartan 25 mg tablet 25 mg PO DAILY 05/23/25 memantine 10 mg tablet 10 mg PO BID 05/23/25 mirtazapine 30 mg tablet 30 mg PO QHS 05/23/25 multivit with minerals-iron 18 mg-folic ac 400 mcg-vit K 25 mcg tablet (Adults Multivitamin) 1 tab PO DAILY 05/23/25 quetiapine 25 mg tablet 25 mg PO BID 05/23/25 prednisone 20 mg tablet 20 mg PO DAILY #10 tabs 05/25/25 Hospital Course Operations None Procedures None Weight / BMI Weight Weight: 83 kg Body Mass Index (BMI) 27.7 ABG / Lab / Microbiology Data 05/24/25 06:20 05/24/25 06:20 Microbiology: Microbiology 05/23/25 21:55 Urine, Clean Catch Urine Culture - Preliminary Culture exhibits no growth. 05/24/25 03:55 Mucosa - Nasopharyngeal Respiratory Panel (PCR) - Final Rhinovirus 05/23/25 21:55 Urine, Clean Catch Streptococcus pneumoniae Antigen (M - Final 05/23/25 21:55 Urine, Clean Catch Legionella Antigen - Final 05/23/25 19:35 Mucosa - Nose SARS-CoV-2, Influenza & RSV (PCR) - Final D/C Instructions DC O2, CPAP, BIPAP Needs Home O2 Discharge instructions: No Meaningful Use Info Meaningful Use Meaningful Use Diagnoses (Choose all that apply): None applicable Discharge Plan Admission Admit Date/Time: 05/24/25 15:36 Attending Provider: Yung Weber Primary Care Provider: Johnson Solano Consulting Providers: Stan Orr Discharge Orders/Prescriptions Prescriptions: New prednisone 20 mg tablet 20 mg PO DAILY Qty: 10 0RF Continued acetaminophen 500 mg tablet 500 mg PO Q6H PRN (Reason: pain) atorvastatin 10 mg tablet 10 mg PO DAILY citalopram 20 mg tablet 20 mg PO DAILY hydrocortisone 2.5 % lotion 1 applic topical DAILY PRN (Reason: skin irritation) ipratropium bromide 42 mcg (0.06 %) spray,non-aerosol 1 spray INTRANASAL BID Patient Comments: [NO ORIGINAL SIG] lorazepam 0.5 mg tablet 0.5 mg PO Q12H PRN (Reason: anxiety) quetiapine 25 mg tablet 25 mg PO BID mirtazapine 30 mg tablet 30 mg PO QHS losartan 25 mg tablet 25 mg PO DAILY memantine 10 mg tablet 10 mg PO BID Adults Multivitamin 18 mg iron-400 mcg-25 mcg tablet 1 tab PO DAILY Referrals / Follow Up: Johnson Solano MD [Primary Care Provider, Medical] - Within 2 Weeks Disposition Disposition (needs filled in before D/C Order can be placed): NonSkilled NH/Intermed Care Charges/Coding Visit Charges Inpatient E&M: 24767 Disch Hosp
--- NOTE | 2025-05-25 11:45 | TREXTCAR_ITS ---
Diet Diet Order/Speech Therapy: INPATIENT Hospital Diet / Speech Therapy Order(s) 05/24/25 01:13 Diet: Cardiac - Heart Healthy Food consistency:: Regular Liquid Consistency:: Regular/Thin Routine Orders/Code Status Code Status: DNRCC DC O2, CPAP, BIPAP needs Home O2 Discharge instructions: No Wound(s) Generalized: Wound Type: Abrasion Left elbow: Wound Type: Abrasion Therapies Physical Therapy: Eval and Treat Occupational Therapy: Eval and Treat Problem/Diagnosis (1) Left hip pain: Status: Acute Code(s): M25.552 - Pain in left hip (2) Viral syndrome: Status: Acute Code(s): B34.9 - Viral infection, unspecified Plan Acute bronchitis * Symptomatic management with scheduled bronchodilator, IV Solu-Medrol, Mucinex, incentive spirometry and Pep. * check home oxygen * DC w prednisone Left hip pain after fall: * Patient is weakness fall in detention. X-ray initially reviewed and shows moderate degenerative changes of bilateral hips but no fracture or dislocation or erosive changes. PT and OT ordered Chronic conditions: * Hypertension: BP in normal limit. 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 Patient on memantine continued. * CKD stage IIIa: Estimated creatinine clearance 45.57. BUN/creatinine 19/1.18. Disposition: plan to DC to [facility] Allergies/Procedures Done in Hospital Allergies No Known Allergies Allergy (Verified 05/24/25 03:57) Type of Care/Length of Stay Estimated LOS: Convalescent Care Less Than 30 days Type of Care Needed: Skilled Rehab Potential: Fair Prognosis: Fair Additional Orders/Day of Discharge Day of Discharge: 05/25/25 Discharge Plan Admission Admit Date/Time: 05/24/25 15:36 Attending Provider: Yung Weber Primary Care Provider: Johnson Solano Consulting Providers: Stan Orr Discharge Orders/Prescriptions Prescriptions: New prednisone 20 mg tablet 20 mg PO DAILY Qty: 10 0RF Continued acetaminophen 500 mg tablet 500 mg PO Q6H PRN (Reason: pain) atorvastatin 10 mg tablet 10 mg PO DAILY citalopram 20 mg tablet 20 mg PO DAILY hydrocortisone 2.5 % lotion 1 applic topical DAILY PRN (Reason: skin irritation) ipratropium bromide 42 mcg (0.06 %) spray,non-aerosol 1 spray INTRANASAL BID Patient Comments: [NO ORIGINAL SIG] lorazepam 0.5 mg tablet 0.5 mg PO Q12H PRN (Reason: anxiety) quetiapine 25 mg tablet 25 mg PO BID mirtazapine 30 mg tablet 30 mg PO QHS losartan 25 mg tablet 25 mg PO DAILY memantine 10 mg tablet 10 mg PO BID Adults Multivitamin 18 mg iron-400 mcg-25 mcg tablet 1 tab PO DAILY Referrals / Follow Up: Johnson Solano MD [Primary Care Provider, Medical] - Within 2 Weeks Disposition Disposition (needs filled in before D/C Order can be placed): NonSkilled NH/Intermed Care
[2025-05-25 12:00] VITALS: BP 108/58; PULSE 93; RESP 15; TEMP 37.4; O2SAT 95
--- NOTE | 2025-05-25 12:03 | CASEMGMT ---
Discharge Planning DC instructions faxed to [facility]. Fax confirmation rec'quan. Kimberley Collins DC Planning Asst.
== END 2025-05-25 13:20 | DRG 202 ==
LOC: ED 23:16 → MS3 23:35
PROVIDERS: Admitting Provider Internal Medicine; Emergency Provider Surgery; PCP Internal Medicine
DX: J20.9 Acute bronchitis, unspecified (principal); F03.93 Unspecified dementia, unspecified severity, with mood disturbance; F03.94 Unspecified dementia, unspecified severity, with anxiety; E78.5 Hyperlipidemia, unspecified; Z66 Do not resuscitate; N18.31 Chronic kidney disease, stage 3a; I12.9 Hypertensive chronic kidney disease with stage 1 through stage 4 chronic kidney disease, or unspecified chronic kidney disease; I45.10 Unspecified right bundle-branch block; M25.552 Pain in left hip; W19.XXXA Unspecified fall, initial encounter; M16.0 Bilateral primary osteoarthritis of hip; S50.312A Abrasion of left elbow, initial encounter; Y92.129 Unspecified place in nursing home as the place of occurrence of the external cause; I49.1 Atrial premature depolarization; H91.90 Unspecified hearing loss, unspecified ear; Z79.899 Other long term (current) drug therapy
CPT/HCPCS: 36415; 71046; 73502; 80048; 80053; 81001; 83605; 83735; 84484; 85025; 87086; 87449; 87631; 87633; 93005; 94640; 94667; 94668; 97161; 97165; 99285; A4216